=== PATIENT | female | born 1995 | race Caucasian/White ===

== ENCOUNTER 2024-01-19 09:40 | Outpatient (CLI) | payer MEDICAID, SELFPAY ==
--- NOTE | 2024-01-19 09:45 | US_ITS ---
Patient: CINDY FLORES Facility:?[facility] Patient ID:?[id number] Site Patient ID:?[id number]. Site :?1995 Study:?US-OB Pelvis TV OB<[id number]-01/19/2024 10:49:16 AM Ordering Physician:Katey Carrera Final Report: Indication: Viability and dating LMP: 11/05/2023 Technique: Real-time sonographic images of the pelvis were obtained transvaginally using grayscale, color, and Doppler imaging. Comparison: None. Findings: Uterus: Left posterior subchorionic hemorrhage measuring 2.2 x 0.9 x 0.8 centimeter. Gestational sac: Mean sac diameter measures 1.4 centimeter, compatible with an average ultrasound age of 6 weeks 2 days. pole: [place]-rump length measures 0.4 centimeter, compatible with an average ultrasound age of 6 weeks 1 day. Yolk sac: Present. heart rate: Not visualized. Right ovary: Size: 4.0 x 2.5 x 1.9 centimeter. Appearance: Normal morphology. Complex corpus luteum measuring 1.8 x 1.3 x 1.3 centimeter. Left ovary: Size: 2.5 x 1.5 x 1.7 centimeter. Appearance: Normal morphology. No masses. Other: No free fluid. Impression: 1. The crown-rump length is <7 mm, with no heartbeat visualized. Findings are suspicious for early failure. 2. 2.2 x 0.9 x 0.8 centimeter left posterior subchorionic hemorrhage. Dictated by Antwon Turner MD @ 01/19/2024 11:02:23 AM Signed by:?Antwon Turner MD @01/19/2024 11:02:23 AM (Electronic Signature)
== END 2024-01-19 09:41 | disposition home or self-care (01) ==
LOC: US 09:41
PROVIDERS: Visit Provider Advanced Practice Midwife
DX: Z34.91 Encounter for supervision of normal pregnancy, unspecified, first trimester (principal); O20.9 Hemorrhage in early pregnancy, unspecified; Z3A.01 Less than 8 weeks gestation of pregnancy
CPT/HCPCS: 76817; 84702; 86850; 86900; 86901

== ENCOUNTER 2024-01-21 10:14 | Outpatient (CLI) | payer MEDICAID, SELFPAY | END 2024-01-21 10:15 | disposition home or self-care (01) | LOC: NFLDREF 01-24 06:36 | PROVIDERS: Visit Provider Advanced Practice Midwife | DX: O20.9 Hemorrhage in early pregnancy, unspecified (principal) | CPT/HCPCS: 84702 ==

== ENCOUNTER 2024-02-04 11:06 | Outpatient (CLI) | payer MEDICAID, SELFPAY ==
--- NOTE | 2024-02-04 11:15 | US_ITS ---
Patient: CINDY FLORES Facility:?[facility] Patient ID:?[id number] Site Patient ID:?[id number]. Site :?1995 Study:?US-OB Pelvis TV pelvic-02/04/2024 12:19:29 PM Ordering Physician:Katey Carrera Final Report: INDICATION: Rule out retained products COMPARISON: 01/19/2024 TECHNIQUE: Real-time hampton-scale imaging of the pelvis was performed. Transabdominal and transvaginal technique. Color Doppler and power Doppler evaluation also performed. FINDINGS: Uterus measures 9.4 x 4.2 x 6.0 cm. No uterine fibroid. Endometrium measures 11 millimeters. Focal area of heterogeneous tissue with vascularity within fundal endometrium measuring 15 x 9 x 15 millimeters. Right ovary measures 4.3 x 2.7 x 2.9 cm and left ovary measures 3.3 x 2.0 x 2.1 cm. No pelvic free fluid. Normal color Doppler and spectral Doppler evaluation of both ovaries. IMPRESSION: Focal heterogeneous and vascular area within the fundal endometrium measuring 1.5 x 0.9 x 1.5 cm suggesting retained products of conception. Dictated by Sreekanth Ruelas MD @ 02/04/2024 12:43:11 PM Signed by:?Sreekanth Ruelas MD @02/04/2024 12:43:11 PM (Electronic Signature)
== END 2024-02-04 11:07 | disposition home or self-care (01) ==
LOC: US 11:06
PROVIDERS: Visit Provider Advanced Practice Midwife
DX: O02.1 Missed abortion (principal)
CPT/HCPCS: 76830; 93976

== ENCOUNTER 2024-02-11 10:18 | Day surgery (SDC) | payer MEDICAID, SELFPAY ==
[2024-02-11] MEDS: DOXYCYCLINE HYCLATE 200 MG in 0.9 % SODIUM CHLORIDE 250 ml 250 ML 250 MG IVPB (11:04)
[2024-02-11] MEDS: LACTATED RINGERS 1000 ML 1,000 ML 100 ML IV (11:05)
[2024-02-11] MEDS: SODIUM CHLORIDE 0.9 % (FLUSH) 10 ML SYRINGE IVF ×2 (11:06→12:35)
[2024-02-11 11:07] VITALS: BP 134/84; PULSE 88; RESP 16; TEMP 36.9; O2SAT 100
[2024-02-11 11:17] LABS: Hemoglobin* 11.6 gm/dL (12.0-16.0)
--- NOTE | 2024-02-11 11:35 | W.PM.H&PU ---
History & Physical Update History & Physical Update H&P Reviewed and patient assessed: No changes noted
--- NOTE | 2024-02-11 11:35 | PM.PROC ---
Procedure Note Time Seen by Provider: 12:13 Date Seen: 02/11/24 Date of procedure: 02/11/[address] [facility] bill your pro fee for this procedure?: Yes Procedure: Preoperative diagnosis: 28 year-old 3 para 2011 with retained products of conception after spontaneous miscarriage. Postoperative diagnosis: Same Procedure: Hysteroscopy, Dilation and Curettage using the Truclear incisor Anesthesia: Conscious sedation, paracervical block. Surgeon: Renata Tsang MD Capacity Planner: None Estimated blood loss: 5 mL IV Fluid: 900 ML Specimen: Endometrial curettings to pathology. Findings: Exam under anesthesia: Uterus: Anteverted position, less than 10 week sized, mobile, with no masses or nodularity palpable. Uterus sounded to 10 cm. No adnexal masses or nodularity palpable. On hysteroscopy: 1.5 cm diameter collection of tissue that looked consistent with retained products of conception at the anterior aspect of the fundus on the left otherwise the endometrial cavity was normal in appearance. Procedure: Velma was taken to the operating operating room more conscious sedation was found to be adequate. The patient was placed on in the dorsal lithotomy position and an exam under anesthesia was performed with findings stated above. She was then prepped and draped in a normal sterile manner. A bivalve speculum was placed in the vagina. The cervix appears nulliparous. Otherwise no abnormalities. The paracervical block was placed using 0.5% Marcaine, 5 mL was injected at the 4 and 8 o'clock positions on the cervix. The anterior lip of the cervix was grasped with a single-tooth tenaculum. The cervix dilated to Hegar 6. The uterus sounded to 10 cm. The Truclear hysteroscope was advanced into the uterus. A diagnostic hysteroscopy was performed with normal saline as the insufflation medium. Findings are stated above. The Truclear incisor was then advanced through the camera. The curettage was performed with the incisor over an approximately 2 minutes. The incisor was then removed. The endometrial cavity appeared normal. Saline deficit at the end of the procedure 505 mL. Total saline used 1180 mL. Nothing was used for hemostasis. The hysteroscope, Allis clamp and speculum were removed from the vaginal canal. The patient tolerated the procedure well. Sponge, lap and instrument counts were correct x2 at the end of the procedure. The patient was taken to the recovery area in stable condition. She received 200 mg IV doxycycline prior to her procedure.
[2024-02-11] MEDS: BUPIVACAINE 0.5% 30 ML INJECTION (12:00)
[2024-02-11 12:15] VITALS: BP 109/76; PULSE 90; RESP 16; TEMP 36.7; O2SAT 100
--- NOTE | 2024-02-11 12:18 | W.ANESCHARGE ---
Anesthesia Charges Start Date/Time Anesthesia Start Date: 02/11/24 Anesthesia Start Time: 11:37 Stop Date/Time Anesthesia Stop Date: 02/11/24 Anesthesia Stop Time: 12:18
[2024-02-11 12:30] VITALS: BP 134/92; PULSE 97; RESP 16; O2SAT 98
[2024-02-11] MEDS: MEPERIDINE 25 MG/ML INJ 12.5 MG IVP (12:35)
[2024-02-11 12:45] VITALS: BP 126/82; PULSE 76; RESP 16; O2SAT 99
[2024-02-11 13:00] VITALS: BP 124/86; PULSE 75; RESP 16; O2SAT 99
--- NOTE | 2024-02-11 13:27 | W.ANESCHARGE ---
Anesthesia Charges Start Date/Time Anesthesia Start Date: 02/11/24 Anesthesia Start Time: 11:37 Stop Date/Time Anesthesia Stop Date: 02/11/24 Anesthesia Stop Time: 12:18
== END 2024-02-11 13:37 | disposition home or self-care (01) ==
PROVIDERS: Visit Provider Obstetrics & Gynecology
PROC: 0UDB8ZZ Extraction of Endometrium, Via Natural or Artificial Opening Endoscopic (ICD-10-PCS; CPT 58558; principal; 2024-02-11 11:15)
DX: O03.4 Incomplete spontaneous abortion without complication (principal)
CPT/HCPCS: 58558; 00952; 36415; 85018; 86850; 86900; 86901; 88305; J0665; J1100; J1885; J2175; J2250; J2405; J2704; J3010; J7050; J7120